=== PATIENT | female | born 1955 | race Caucasian/White ===

== ENCOUNTER 2016-10-23 09:25 | Day surgery (SDC) | payer BC ==
[~2016-10-23] VITALS: Ht 152.4 cm; Wt 54.0 kg
[2016-10-23 10:34] VITALS: Ht 152.4 cm; Wt 54.0 kg
[2016-10-23 10:56] VITALS: BP 124/68; PULSE 55; RESP 18
[2016-10-23] MEDS ORDERED: FENTAnyl 50 MCG/ML VIAL ONE (11:43)
[2016-10-23] MEDS ORDERED: MIDAZOLAM 1 MG/ML 2 ML INJ ONE ×3 (11:43)
--- NOTE | 2016-11-03 05:15 | GILP ---
DATE OF PROCEDURE: PROCEDURE PERFORMED: Colonoscopy. SURGEON: Dr. Christianne Juarez. PREOPERATIVE DIAGNOSES: 1. Screening colonoscopy. 2. Status post radiation and chemotherapy for anal cancer. 3. History of occasional of rectal bleeding. POSTOPERATIVE DIAGNOSES: 1. Colonoscopy all the way to the cecum. 2. Radiation proctitis. 3. Internal hemorrhoids. 4. No rectal neoplasm was identified. INDICATION: Ms. Ammy Yost is a 60-year-old female patient who has history of anal cancer for which she has undergone radiation and chemotherapy. Patient was scheduled for screening colonoscopy. The procedure and possible complications were well explained to the patient. She understood and consented to the procedure. DESCRIPTION OF PROCEDURE: Under influence of fentanyl and Versed, the endoscope was carefully introduced into the rectum and under direct vision it was advanced all the way to the cecum. FINDINGS: The patient had radiation proctitis. She also internal hemorrhoids. No colon neoplasm was identified. The patient tolerated the procedure very well and there were no complications from the procedure. At the end of the procedure, she was awake with stable vital signs and she was discharged home in the care of her family. IMPRESSION: 1. Colonoscopy all the way to the cecum. 2. Radiation proctitis. 3. Internal hemorrhoids. 4. No colon neoplasm was identified. PLAN: Next screening colonoscopy in 5 years. Dictated By: MD ILIANA Nguyen/kourtney/christopher /Document#: [id number] CC: Christianne Juarez MD;*EndCC* [facility]
== END 2016-10-23 15:46 | disposition home or self-care (01) ==
LOC: GIL 09:25
PROVIDERS: ATTEND Internal Medicine Gastroenterology
DX: Z12.11 Encounter for screening for malignant neoplasm of colon (principal); K64.8 Other hemorrhoids; K62.7 Radiation proctitis
CPT/HCPCS: 45378; J2250; J3010; Z7610